=== PATIENT | female | born 1985 | race Caucasian/White ===

== ENCOUNTER 2019-11-08 11:59 | Emergency (ER) | payer OTHER ==
[~2019-11-08] VITALS: Ht 152.4 cm; Wt 78.2 kg
[~2019-11-08 11:59] MED LIST: ALBU83IN INH; ASPI-255 PO; BENA25CA2 PO; BENA2CRE3 TOP; COLA100C5 PO; CYCL10TA PO; FERR240T PO; GABA-845 PO; GARC500T PO; IBUP80TA PO; LEVA1TAB2 PO; NEUR400C PO; PAXI20TA29 PO; PAXI30TA11 PO; PERC5TAB12 PO; SYNT25TA PO; TRAM100T21 PO; TRAM50TA2 PO; TYLE325T5 PO
[2019-11-08] MEDS ORDERED: SERT-138 (12:17)
[2019-11-08] MEDS ORDERED: PRAZ5CAP (12:17)
[2019-11-08] MEDS ORDERED: ALPR1TAB3 (12:17)
[2019-11-08] MEDS ORDERED: GABA600T4 (12:17)
[2019-11-08] MEDS ORDERED: ATOR1TAB21 (12:17)
[2019-11-08] MEDS ORDERED: KETO10TAB (12:17)
[2019-11-08] MEDS ORDERED: TRAM50TA2 PO (14:06)
[2019-11-08 15:58] VITALS: BP 136/91
[2019-11-08] MEDS ORDERED: ACETAMINOPHEN 325 MG TAB PO ONE (16:00)
--- NOTE | 2019-11-09 08:25 | REP ---
OUTSIDE FILM INTERPRETATION: RIGHT ANKLE AND FOOT SERIES: Eight views done November 05, 2019 at outside facility. HISTORY: Trauma. FINDINGS: Four views of the right ankle are presented dated November 05, 2019. Ankle mortise is intact. No ankle fracture or subluxation is seen. Achilles tendon contour is intact. There is Achilles calcaneal spurring however. Four views of the right foot are also included. These show overall normal mineralization. No fracture or subluxation is seen. IMPRESSION: Achilles calcaneal spurring. Otherwise negative. No fracture seen. Electronically Signed by Marv Crenshaw MD 11/09/2019 08:59 A
== END 2019-11-08 16:08 | disposition home or self-care (01) ==
LOC: M ED 11:59
DX: S39.012A Strain of muscle, fascia and tendon of lower back, initial encounter (principal); S93.401A Sprain of unspecified ligament of right ankle, initial encounter; X58.XXXA Exposure to other specified factors, initial encounter; Y92.099 Unspecified place in other non-institutional residence as the place of occurrence of the external cause; Y93.9 Activity, unspecified; Y99.9 Unspecified external cause status; Z98.1 Arthrodesis status; F17.200 Nicotine dependence, unspecified, uncomplicated; M77.31 Calcaneal spur, right foot; Z79.899 Other long term (current) drug therapy; Z88.0 Allergy status to penicillin; Z88.5 Allergy status to narcotic agent

== ENCOUNTER 2019-12-18 17:14 | Emergency (ER) | payer OTHER ==
[~2019-12-18] VITALS: Ht 152.4 cm; Wt 74.8 kg
[~2019-12-18 17:14] MED LIST changes: +ALPR1TAB3 PO; +ATOR1TAB21 PO; +GABA600T4 PO; +KETO10TAB; +PRAZ5CAP; +SERT-138 PO
[2019-12-18] MEDS ORDERED: LIDO2SOL9 (17:25)
[2019-12-18] MEDS ORDERED: ibuprofen 800 (17:25)
[2019-12-18] MEDS ORDERED: CLIN300C5 PO (17:25)
[2019-12-18] MEDS ORDERED: PROAAER10 INH (17:48)
[2019-12-18] MEDS ORDERED: NORCO, ANEXSIA 5/325MG TABLET (HYDROcodone/ACETAMINOPHEN) PO ONE (18:15)
[2019-12-18 18:39] LABS: BASO % 0.3 % (0.0-1.0); EOS # 0.1 10^3/uL (0.0-0.5); EOS % 0.5 % (0.0-3.0); HEMATOCRIT 40.9 % (36.0-47.0); HEMOGLOBIN 14.1 g/dl (12.0-15.5); LYMPH # 2.7 10^3/uL (1.5-5.0); MEAN CORPUSCULAR HEMOGLOBIN 31.5 pg (27.0-33.0); MEAN CORPUSCULAR HGB CONC 34.5 g/dl (32.0-36.5); MEAN CORPUSCULAR VOLUME 91.5 fl (80.0-96.0); MONO # 0.9 10^3/uL (0.0-0.8); MONO % 6.2 % (0.0-5.0); NEUTROPHILS # 11.3 10^3/uL (1.5-8.5); NEUTROPHILS % 74.5 % (36.0-66.0); PLATELET COUNT, AUTOMATED 424 10^3/uL (150-450); RED BLOOD COUNT 4.47 10^6/uL (4.00-5.40); WHITE BLOOD COUNT 15.2 10^3/uL (4.0-10.0)
[2019-12-18] MEDS ORDERED: ISOVUE-370 76% 100ML VIAL (Q9967) As Ordered ONE (18:44)
[2019-12-18 19:01] LABS: ERYTHROCYTE SEDIMENTATION RATE 60 mm/hr (0-20)
--- NOTE | 2019-12-18 19:50 | REPVR ---
PROCEDURE INFORMATION: Exam: CT Neck With Contrast Exam date and time: 12/18/2019 6:43 PM Age: 34 years old Clinical indication: Mass, lump, or swelling in neck; Additional info: Swelling to right jaw and neck R/O abscess TECHNIQUE: Imaging protocol: Computed tomography images of the neck with intravenous contrast. Radiation optimization: All CT scans at this facility use at least one of these dose optimization techniques: automated exposure control; mA and/or kV adjustment per patient size (includes targeted exams where dose is matched to clinical indication); or iterative reconstruction. Contrast material: ISOVUE 370; Contrast volume: 75 ml; Contrast route: IV; COMPARISON: No relevant prior studies available. FINDINGS: Nasopharynx: Unremarkable. Oropharynx: Unremarkable. Hypopharynx: Unremarkable Larynx: Unremarkable. Normal epiglottis. Retropharyngeal space: Unremarkable. Submandibular/Parotid glands: The right submandibular and sublingual glands appears mildly enlarged and enhancing compared to the contralateral side. There is diffuse adjacent soft tissue edema, for example involving the floor of mouth musculature. On coronal image 16 of series 202, sagittal image 39 of series 203, axial image 27 of series 201, abnormal attenuation displacing the right sublingual gland posteriorly, medially and superiorly consistent with effusion or early abscess; on the axial and coronal images, no definite marginal enhancemento, on the sagittal imaging, suggestion of some superior loculation with early marginal enhancement. On the sagittal imaging, this area measures approximately 1.4 cm in craniocaudal x 0.7 cm in AP dimensions. No ductal stones identified in the submandibular duct. No significant tongue base edema. The airway is patent. Thyroid: Normal. No enlarged or calcified nodules. Lymph nodes: Mildly enlarged and enhancing submental and submandibular lymph nodes, likely reactive. Trachea: Visualized trachea is unremarkable. Lungs: Unremarkable as visualized. Dental: Mild periapical lucency adjacent to the root of the right mandibular 1st premolar tooth consistent with endodontal disease. The alveolar ridge remains intact. No large periapical abscesses identified. Bones/joints: No acute fracture seen. The cervical spine demonstrates disc height loss and spondylosis with uncovertebral arthropathy at C6-C7. A focal, sclerotic lesion in the T1 spinous process may represent a bone island. Soft tissues: See Submandibular/parotid Glands Finding. IMPRESSION: 1. Findings consistent with right submandibular and sublingual sialadenitis. 2. There is right mandibular 1st premolar dental disease. 3. Right floor of mouth effusion versus abscess causing mass effect upon the right sublingual gland. Electronically signed by: Mary Fowler On 12/18/2019 19:49:41 PM
[2019-12-18] MEDS ORDERED: MOXI1TAB PO (20:57)
[2019-12-18] MEDS ORDERED: ERTAPENEM SODIUM 1 GM in NS MINI-BAG PLUS 50 ML IV ONE (21:00)
[2019-12-18] MEDS ORDERED: NORC1TAB7 PO (21:01)
[2019-12-18] MEDS ORDERED: CEFDINIR 300 MG CAP (OMNICEF) PO ONE (22:00)
[2019-12-18] MEDS ORDERED: PROMETHAZINE 25 MG TAB PO ONE (22:00)
[2019-12-18] MEDS ORDERED: KETOROLAC 30 MG/ML VIAL (J1885) IV ONE (22:45)
[2019-12-18] MEDS ORDERED: CEFD1CAP8 PO (23:10)
[2019-12-18 23:19] VITALS: BP 150/90
[2019-12-18] MEDS ORDERED: NORCO 5/325MG TABLET (BULK FOR ED) PO ONE (23:30)
--- NOTE | 2019-12-20 19:16 | ED PDOC ---
Post-Departure Follow-Up dr austin and cl[facility] faxed formal report of ct neck for fu Shannan Blevins MD Dec 20, 2019 19:16
== END 2019-12-18 23:32 | disposition home or self-care (01) ==
LOC: M ED 17:14
DX: K08.89 Other specified disorders of teeth and supporting structures (principal); K02.9 Dental caries, unspecified; F17.200 Nicotine dependence, unspecified, uncomplicated; Z79.899 Other long term (current) drug therapy; Z88.0 Allergy status to penicillin; Z88.5 Allergy status to narcotic agent
CPT/HCPCS: 70491; 80047; 85025; 85652; 86140; 87880; 96365; 96375; 99284; J1335; J1885; Q9967